=== PATIENT | male | born 1980 | race Caucasian/White ===

== ENCOUNTER 2017-09-25 08:10 | Emergency (ER) | payer SELFPAY ==
[~2017-09-25] VITALS: Ht 180.3 cm; Wt 81.6 kg
[2017-09-25 08:13] VITALS: BP 140/86
--- NOTE | 2017-09-25 08:23 | NUR ---
Patient ambulated to bed 3. RN evaluating patient at bedside.
--- NOTE | 2017-09-25 08:30 | NUR ---
C/O "TWISTING, STABBING" ABD PAIN /10 AND N/V/D X 4 DAYS. JUST RETURNED FROM [place] LAST NIGHT. UNABLE TO TOLERATE ANYTHING PO, N/V BLOOD TINGED EMESIS. 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 AIRWAY IS PATENT, DENIES SOB OR COUGH. WAS SEEN IN [facility] IN [place], GIVEN IV ABX TREATMENT WITH NO RELIEF. HX: DENIES
--- NOTE | 2017-09-25 08:34 | NUR ---
Dr. Cao evaluating patient at bedside.
[2017-09-25] MEDS ORDERED: NACL 0.9% 1,000 ML IV SCH (08:37)
[2017-09-25] MEDS ORDERED: DEXAMETHASONE 10 MG/ML VIAL IVP ONE (08:40)
[2017-09-25] MEDS ORDERED: FAMOTIDINE 20 MG/2 ML VIAL IVP ONE (08:40)
[2017-09-25] MEDS ORDERED: diphenhydrAMINE 50 MG/ML VIAL IVP ONE ×2 (08:40→11:40)
[2017-09-25] MEDS ORDERED: ONDANSETRON 4 MG/2 ML VIAL IVP ONE (08:40)
--- NOTE | 2017-09-25 09:20 | NUR ---
WILLIAM PT REQUESTED FOR PHOTOENGRAVING APPRENTICE TO COME BACK FOR MEDS TO TAKE EFFECT, NOTIFIED Addendum: 09/25/17 at 1718 by SHANIA NO EPISODE OF VOMITING OR DIARRHEA AT THIS TIME
[2017-09-25 09:26] LABS: BASOPHILS % (AUTO) 0.5 % (0.0-2.0); EOSINOPHILS # (AUTO) 0.2 K/uL (0-0.4); EOSINOPHILS % (AUTO) 2.1 % (0.0-4.0); HEMOGLOBIN 8.3 g/dL (12.0-18.0); LYMPHOCYTES # (AUTO) 1.6 K/uL (2.0-11.5); LYMPHOCYTES % (AUTO) 21.9 % (20.5-51.1); MEAN CORPUSCULAR HEMOGLOBIN 26 pg (27-31); MEAN CORPUSCULAR HGB CONC 33 g/dL (33-37); MEAN CORPUSCULAR VOLUME 79.4 fL (80-94); MONOCYTES # (AUTO) 0.7 K/uL (0.8-1.0); MONOCYTES % (AUTO) 9.5 % (1.7-9.3); PLATELET COUNT (AUTO) 322 K/uL (140-450); RED BLOOD CELL COUNT(AUTO) 3.15 MIL/uL (4.20-6.10); RED CELL DISTRIBUTION WIDTH 14.6 % (11.6-13.7); WHITE BLOOD COUNT (AUTO) 7.5 K/uL (4.8-10.8)
--- NOTE | 2017-09-25 09:32 | NUR ---
DR GUERIN NOTIFIED OF PT ASKING FOR ADDITIONAL MEDICATION FOR ABDOMINAL PAIN BEFORE CT SCAN
[2017-09-25 09:37] LABS: ALBUMIN 3.2 g/dL (3.4-5.0); AMYLASE 31 U/L (25-115); ANION GAP 11.1 (8-16); ASPARTATE AMINOTRANSFERASE 10 U/L (15-37); CARBON DIOXIDE 25.3 mmol/L (21-32); CHLORIDE 109 mmol/L (98-107); CREATININE 0.9 mg/dL (0.7-1.3); GFR ARICAN-AMERICAN 122 mL/min (>90); GLUCOSE 93 mg/dL (74-106); LIPASE 72 U/L (73-393); POTASSIUM 3.4 mmol/L (3.5-5.1); SODIUM SERUM 142 mmol/L (136-145); TOTAL BILIRUBIN 0.2 mg/dL (0.0-1.0); UREA NITROGEN, BLOOD 21 mg/dL (7-18)
[2017-09-25] MEDS ORDERED: HYDROmorphone 1 MG/ML AMP IVP ONE (09:40)
--- NOTE | 2017-09-25 09:59 | NUR ---
PT TAKEN OFF THE UNIT TO CT SCAN VIA GURNEY BY CONTRACT NEGOTIATION SPECIALIST
[2017-09-25 10:17] LABS: BARBITURATE, URINE NEG. ng/ml (NEG <=200); BENZODIAZEPINE, URINE POS. ng/mL (NEG <=200); CANNABINOID, URINE NEG. ng/mL (NEG <=50); COCAINE, URINE NEG. ng/mL (NEG <=300); OPIATE, URINE POS. ng/mL (NEG <=2000); PHENCYCLIDINE SCREEN,URINE NEG. ng/mL (NEG <=25)
[2017-09-25 10:21] LABS: APPEARANCE,URINE CLEAR (CLEAR); BILIRUBIN,URINE NEGATIVE (NEGATIVE); BLOOD, URINE NEGATIVE (NEGATIVE); COLOR,URINE YELLOW (YELLOW); LEUKOCYTE ESTERASE ,URINE NEGATIVE (NEGATIVE); NITRITE, URINE NEGATIVE (NEGATIVE); PH,URINE 5.5 (5.0-9.0); UGLUCOSE NEGATIVE (NEGATIVE)
[2017-09-25] MEDS ORDERED: KETOROLAC 30 MG/ML VIAL IVP ONE (10:45)
[2017-09-25] MEDS ORDERED: NACL 0.9% 1,000 ML IV ONE (10:45)
[2017-09-25] MEDS ORDERED: MORPHINE SULFATE 2 MG/ML SYR IVP ONE (10:45)
--- NOTE | 2017-09-25 10:58 | NUR ---
AGGRESSIVE BEHAVOIR TOWARDS ER STAFF, STATES "WHAT ARE YOU LOOKING AT MAN" WHEN LOOKED AT BY MALE STAFF.
--- NOTE | 2017-09-25 11:21 | NUR ---
Dr. Cao at bedside.
[2017-09-25] MEDS ORDERED: HYDROmorphone PFS 2 MG/ML SYR IM ONE (11:40)
[2017-09-25 12:20] VITALS: BP 134/94
--- NOTE | 2017-09-25 12:20 | NUR ---
Patient discharged with v/s stable. Written and verbal after care instructions given and explained. Patient alert, oriented and verbalized understanding of instructions. Pt ambulates to the cafeteria. All questions addressed prior to discharge. ID band removed. Patient advised to go to [facility] Rx of levsin, flomax, famotidine, zofran given. Patient educated on indication of medication including possible reaction and side effects. Opportunity to ask questions provided and answered. Per pt. mom is on the way to pick him up.
== END 2017-09-25 12:20 | disposition home or self-care (01) ==
LOC: MED 08:10
DX: N20.0 Calculus of kidney (principal); A09 Infectious gastroenteritis and colitis, unspecified; D64.9 Anemia, unspecified; Z91.010 Allergy to peanuts; Z91.041 Radiographic dye allergy status; Z88.8 Allergy status to other drugs, medicaments and biological substances
CPT/HCPCS: 36415; 74176; 80053; 80305; 81003; 82150; 83690; 85025; 96361; 96374; 96375; 96376; 99285; G0482; J1100; J1170; J1200; J1885; J2270; J2405; J3490; J7030

== ENCOUNTER 2017-09-25 16:46 | Emergency (ER) | payer SELFPAY ==
[~2017-09-25] VITALS: Ht 177.8 cm; Wt 79.4 kg
[2017-09-25 16:49] VITALS: BP 108/83
--- NOTE | 2017-09-25 16:49 | NUR ---
PT BEDSIDE TRIAGED IN BED 11. REPORT GIVEN TO XU LIND.
--- NOTE | 2017-09-25 16:49 | NUR ---
Patient ambulated to bed 11. RN evaluating patient at bedside.
--- NOTE | 2017-09-25 16:49 | NUR ---
PT C/O BEING SEEN EARLIER TODAY FOR VOMITING BLOOD SINCE TUESDAY, DENIES DIARREA AND NAUSEA AND FOR ITCHY THROAT AND DYSPHAGIA. PT ALSO C/O UMBILICAL PAIN 10/10 SHARP STABBING STARTING 20 MIN AGO. SKIN IS INTACT, PINK/WARM/DRY; AAOX4, PERRL, WITH EVEN AND STEADY GAIT; LUNGS CLEAR BL, BREATHING UNLABORED; HR EVEN AND REGULAR, BL PERIPHERAL PULSES PRESENT; BS ACTIVE X4, TENDER TO PALPATION IN UMBILICAL REGION, NO HEPATOSPLENOMEGALLY PALPATED, RESONANT TO PERCUSSION; PT DENIES ANY FEVER, CP, SOB, OR COUGH AT THIS TIME; PT STATES 10/10 PAIN AT THIS TIME; VSS; PATIENT POSITIONED FOR COMFORT; HOB ELEVATED; BEDRAILS UP X2; BED DOWN.
--- NOTE | 2017-09-25 17:10 | NUR ---
PT BECOMING AGITATED, DEMANDING TO SPEAK TO GREEN MARKETER AND EDMD, EDMD AT BEDSIDE AND EXPLAINED PLAN TO PATIENT. GREEN MARKETER NOTIFIED BY BRIDGETTE LIND.
--- NOTE | 2017-09-25 17:41 | NUR ---
PT YELLING FROM ROOM DEMANDING TO SPEAK TO NURSE, UPON ENTERING ROOM PT STATED "YOU NEED TO START AN IV AND GIVE ME MEDICATION NOW, YOU GUYS ARE GOING TO HAVE A HUGE LAWSUIT IF YOU DON'T TREAT ME NOW." PT MADE AWARE THAT EDMD IS AWARE OF PATIENT STATUS AND NO ORDERS ARE PLACED AT THIS TIME.
--- NOTE | 2017-09-25 17:44 | NUR ---
REPORT GIVEN TO XU LIND
--- NOTE | 2017-09-25 17:56 | NUR ---
PT RIPPED OFF MONITOR, COMING OUT OF ROOM YELLING TO SPEAK WITH DOCTOR, PT REDIRECTED TO SIT BACK ON BED BY RN. AFTER MULTIPLE REDIRECTION ATTEMPTS PT SAT BACK ON BED.
[2017-09-25] MEDS ORDERED: NACL 0.9% 2,000 ML IV SCH (18:06)
[2017-09-25] MEDS ORDERED: FAMOTIDINE 20 MG/2 ML VIAL IVP ONE (18:10)
[2017-09-25] MEDS ORDERED: PANTOPRAZOLE 40 MG INJ VIAL IVP ONE (18:10)
--- NOTE | 2017-09-25 18:14 | NUR ---
WENT TO PT ROOM WITH PUBLIC TRANSIT SPECIALIST AND PT DEMANDED THAT WE PROVIDE A NOTE TO WHY WE ARE REFUSING TREATMENT. PT GIVEN EXPLANATION BY PUBLIC TRANSIT SPECIALIST THAT WE ARE NOT REFUSING TREATMENT AND THAT HE WAS SEEN EARLIER TODAY AND GIVEN INSTRUCTIONS TO GO TO [facility] BY DR. GUERIN. EDMD MADE AWARE.
[2017-09-25 18:30] VITALS: BP 121/69
[2017-09-25] MEDS ORDERED: FAMOTIDINE 20 MG/2 ML VIAL ONE (18:46)
[2017-09-25 18:51] LABS: RED BLOOD CELL COUNT(AUTO) 3.46 MIL/uL (4.20-6.10); WHITE BLOOD COUNT (AUTO) 10.1 K/uL (4.8-10.8)
[2017-09-25 18:52] LABS: EOSINOPHILS # (AUTO) 0.1 K/uL (0-0.4); EOSINOPHILS % (AUTO) 0.9 % (0.0-4.0); HEMATOCRIT 27.5 % (36-52); HEMOGLOBIN 8.8 g/dL (12.0-18.0); LYMPHOCYTES # (AUTO) 0.4 K/uL (2.0-11.5); LYMPHOCYTES % (AUTO) 4.4 % (20.5-51.1); MEAN CORPUSCULAR HEMOGLOBIN 25 pg (27-31); MEAN CORPUSCULAR HGB CONC 32 g/dL (33-37); MEAN CORPUSCULAR VOLUME 79.7 fL (80-94); MONOCYTES # (AUTO) 0.2 K/uL (0.8-1.0); MONOCYTES % (AUTO) 2.1 % (1.7-9.3); NEUTROPHILS # (AUTO) 9.3 K/uL (1.8-7.7); NEUTROPHILS % (AUTO) 91.6 % (42.2-75.2); PLATELET COUNT (AUTO) 339 K/uL (140-450); RED CELL DISTRIBUTION WIDTH 14.9 % (11.6-13.7)
[2017-09-25 18:53] LABS: BASOPHILS # (AUTO) 0.1 K/uL (0.00-0.22)
[2017-09-25 18:56] LABS: ANION GAP 14.4 (8-16); CARBON DIOXIDE 24.7 mmol/L (21-32); POTASSIUM 4.1 mmol/L (3.5-5.1)
[2017-09-25 19:00] LABS: PROTHROMBIN TIME 9.5 secs (10.8-13.4)
[2017-09-25 19:01] LABS: ALBUMIN 3.5 g/dL (3.4-5.0); TOTAL BILIRUBIN 0.2 mg/dL (0.0-1.0)
[2017-09-25] MEDS ORDERED: diphenhydrAMINE 50 MG/ML VIAL IVP ONE (19:45)
[2017-09-25] MEDS ORDERED: ONDANSETRON 4 MG/2 ML VIAL IVP ONE (19:45)
--- NOTE | 2017-09-25 20:15 | NUR ---
PT REFUSED NG TUBE AND STOOL FOR OCCULT BLOOD SAMPLE FOR DX. RATIONAL EXPLAINED TO PT. PT STATES HE WISES TO ATTEND ANOTHER HOSPITAL. DR HEWITT NOTIFIED.
--- NOTE | 2017-09-25 20:20 | NUR ---
DR MCCOLLUM AT BEDSIDE EXPLAINING PROCEDERS AND NECESSITY OF PROCEDURES AND TESTING. PT WAS VERBALLY BELLIGERENT WITH PHYSICIAN YELLING AT HIM FOR NOT HELPING HIM. PT STATES HE WILL LEAVE AGAINST MEDICAL ADVICE.
--- NOTE | 2017-09-25 20:25 | NUR ---
Patient does not wish to proceed with medical care recommended by Dr. Myers. Patient given information related to possible complications, up to and including , which could occur as a result of leaving hospital at this time. Patient verbalizes understanding of risks involved leaving against medical advice. Patient refused to sign AMA form.
--- NOTE | 2017-09-25 20:25 | NUR ---
PT LEFT FACILITY AGAINST MEDICAL AVICE AND REFUSED TO SIGN AMA FORM.
--- NOTE | 2017-10-06 02:54 | NUR ---
Late entry for 09/25/17: Pt recieved NS infusion of 2 liters. Pt recieved the first liter ending at 1915. He then refused the second liter of NS. 1st Liter: start 18:51, end at 19:15 2nd Liter: refused
== END 2017-09-25 20:25 | disposition left against medical advice (07) ==
LOC: MED 16:46
DX: R11.10 Vomiting, unspecified (principal); R10.84 Generalized abdominal pain; R19.7 Diarrhea, unspecified; F32.9 Major depressive disorder, single episode, unspecified; Z91.010 Allergy to peanuts; Z91.041 Radiographic dye allergy status; Z88.8 Allergy status to other drugs, medicaments and biological substances
CPT/HCPCS: 36415; 80053; 85025; 85610; 85730; 86886; 86900; 86901; 96361; 96374; 96375; 99285; C9113; J1200; J2405; J3490; J7030